=== PATIENT | female | born 1975 | race Caucasian/White ===

== ENCOUNTER → 2020-05-07 06:48 | Outpatient (CLI) | payer OTHER, SELFPAY ==
[2020-05-07 18:32] LABS: SARS-CoV-2 RNA PCR Negative
== END ==
PROVIDERS: PCP Physician Assistant; Visit Provider Physician Assistant
DX: R68.89 Other general symptoms and signs (principal); Z20.822 Contact with and (suspected) exposure to COVID-19
CPT/HCPCS: C9803; U0003; U0005

== ENCOUNTER 2021-10-11 10:09 | Outpatient (CLI) | payer OTHER, SELFPAY ==
--- NOTE | ~2021-10-11 | MM_ITS ---
EXAMINATION: MM screening sheng BI w michelle HISTORY: Screening TECHNIQUE: Craniocaudal and mediolateral oblique 3-D tomosynthesis images were obtained and synthetic 2-D images were generated. CAD analysis was submitted and interpreted. COMPARISON: Comparison to multiple prior studies sequentially, with oldest reviewed study dated 03/2013. BREAST PARENCHYMAL COMPOSITION: The breasts are heterogeneously dense, which may obscure small masses . FINDINGS: There is no evidence of suspicious mass, calcification, or architectural distortion to sugg est malignancy in either breast. There has been no suspicious interval change. IMPRESSION: 1. No mammographic evidence of malignancy. 2. Recommend routine screening mammography in one year. BI-RADS Category 1: Negative Reviewed, dictated and finalized at location A.
== END 2021-10-11 10:10 | disposition home or self-care (01) ==
PROVIDERS: PCP Physician Assistant; Visit Provider Physician Assistant
DX: Z12.31 Encounter for screening mammogram for malignant neoplasm of breast (principal)
CPT/HCPCS: 77063; 77067

== ENCOUNTER 2024-06-22 13:46 | Outpatient (CLI) | payer OTHER, SELFPAY ==
--- NOTE | ~2024-06-22 | MM_ITS ---
EXAMINATION: MM screening sehng BI w michelle HISTORY: Screening TECHNIQUE: Craniocaudal and mediolateral oblique 3-D tomosynthesis images were obtained and synthetic 2-D images were generated. CAD analysis was submitted and interpreted. COMPARISON: Comparison to multiple prior studies sequentially, with oldest reviewed study dated 06/07. BREAST PARENCHYMAL COMPOSITION: Dense: The breasts are heterogeneously dense, which may obscure small masses FINDINGS: There is no evidence of suspicious mass, calcification, or architectural distortion to sugg est malignancy in either breast. There has been no suspicious interval change. IMPRESSION: 1. No mammographic evidence of malignancy. 2. Recommend routine screening mammography in one year. BI-RADS Category 1: Negative Reviewed, dictated and finalized at location A.
--- OUTSIDE RECORDS SUMMARY | 2024-06-22 14:35 | XMS_ITS | Clinical Summary ---
Author Organization [place] [id number] [facility] Address [address] [place] [id number] Phone Care Team Providers Care Rehabilitation Services Coordinator Name Role Phone Kathy Dwyer Primary Care Pr ovider Heron Levine MD Unavailable [phone] Allergies No known active allergies Medications levothyroxine sodium (TIROSINT) 88 mcg capsule Take 1 capsule (88 mcg total) by mouth daily Active FLUoxetine (PROzac) 20 mg tablet Take 1 tablet (20 mg total) by mouth daily Active diclofenac sodium 20 mg/gram /actuation(2 %) solution in metered-dose pump Apply 2 gms to affected joints of the hands and feet bid prn 112 g 2 06/16/19 19 Active Additional Information Patient not taking.Reported on 03/21/2023 omeprazole (PriLOSEC) 40 mg capsule Take 1 capsule (40 mg total) by mouth daily 30 capsule 09/17/19 22 Active ondansetron ODT (ZOFRAN-ODT) 4 mg disintegrating tablet Take 1 tablet (4 mg total) by mouth every 8 (eight) hours as needed for nausea or vomiting 20 tablet 03/21/19 24 Active meloxicam (MOBIC) 15 mg tablet TAKE 1 TABLET BY MOUTH DAILY 90 tablet 08/16/19 24 Active Active Problems Problem Noted Date Diagnosed Date Myalgia 03/10/2022 Assessment & Plan (02/24/2023 12:21 PM WELCOME CENTER ATTENDANT): Describes episodic diffuse general arthralgias/myalgias and fatigue suspicious for the possibility of fibromyalgia, which was discussed today. Has no tender points on exam. Consider duloxetine or gabapentin in the future, symptoms become more frequent and/or bothersome. Assessment & Plan (03/10/2022 2:28 PM WELCOME CENTER ATTENDANT): Has occasional episodes in which she experiences diffuse generalized myalgias/arthralgias and significant fatigue. No tender points on exam. Will check thyroid studies and muscle enzymes. Lateral epicondylitis of both elbows 04/04/2020 Assessment & Plan (04/04/2020 12:08 PM WELCOME CENTER ATTENDANT): Symptoms mild, intermittent and managed fairly well with meloxicam. Discussed epicondyle band if symptoms worsen. Hypothyroidism 12/29/2018 Assessment & Plan (12/29/2018 12:39 PM WELCOME CENTER ATTENDANT): Hx of hypothyroidism on levo. Patient notes unexplained weight gain. Will check tsh/free t4 today Encounter for long-term (current) use of medicat ions 10/26/2018 Assessment & Plan (03/10/2022 2:27 PM WELCOME CENTER ATTENDANT): Routine labs today. Assessment & Plan (08/21/2021 11:01 AM CDT): Routine labs today. Assessment & Plan (01/09/2021 12:49 PM WELCOME CENTER ATTENDANT): Routine labs today. Assessment & Plan (04/04/2020 12:09 PM WELCOME CENTER ATTENDANT): Routine labs today. Assessment & Plan (07/07/2019 10:29 AM CDT): Routine labs today. Repeat L hand US prior to next visit. Assessment & Plan (03/31/2019 11:29 AM WELCOME CENTER ATTENDANT): Routine labs today, including repeat avise. Assessment & Plan (12/29/2018 12:39 PM WELCOME CENTER ATTENDANT): Routine labs today. Chronic SI joint pain 06/15/2018 Assessment & Plan (07/07/2019 10:29 AM CDT): Pelvis MRI 10/12/2018 did not display any significant findings Symptoms resolved with mobic 7.5 daily. No complaints today. Assessment & Plan (03/31/2019 11:28 AM WELCOME CENTER ATTENDANT): Pelvis MRI 10/12/2018 did not display any significant findings Symptoms resolved with mobic 7.5 daily. Assessment & Plan (12/29/2018 12:38 PM WELCOME CENTER ATTENDANT): Pelvis MRI 10/12/2018 did not display any significant findings Symptoms resolved with mobic 7.5 daily. Assessment & Plan (11/24/2018 2:09 PM CDT): Pelvis MRI 10/12/2018 did not display any significant findings Will see if this improves with mobic. Assessment & Plan (10/26/2018 3:00 PM CDT): Pelvis MRI 10/12/2018 did not display any significant findings Assessment & Plan (06/15/2018 12:49 PM CDT): Had bone scan per pcp given the sclerotic findings seen on the SI xray, which came back unremarkable, per patient report. Continues to have SI joint pains, which are worst when flared. Does note AM stiffness. Will check HLA b27 and recheck SI and lumbar xr. History of pancreatitis 01/18/2018 Polyarthralgia 01/18/2018 Overview (10/23/2020): Initial serologies: Pos shira 1:160 homogenous, pos thyroid ab, pos ps/pt on avise; 14.3.3 eta protein: 0.4; negative hla b27 Avise 04/01/2019: Low positive SHIRA by Precious only, positive TPO 67 Repeat Avise 10/22/2020: Positive SHIRA 1:160 dense fine speckled, positive TPO, positive PS PT US 01/27/2018: 1) Mild 2nd MCP and 3rd PIP synovial thickening on examination which will have to be correlated clinically. 2) 4th compartment effusion present. MRI pelvis 10/12/2018: No significant findings Repeat left hand/wrist ultrasound 10/28/2018: Very mild 2nd PIP synovial thickening. Fourth compartment effusion. Hx of intermittent joint pains, involving the hands (pip and dip joints), bilateral feet (1st digit), medial aspect of the knee, SI joints, as well as the upper neck. Denies any of these symptoms present today. Intermittent flares occur every several months and can last ~2 weeks per episode. Mild AM pain and stiffness, which does improve with use. Denies other symptoms for CTD. Strong fh for RA, FM, sarcoidosis, crohn's. No obvious synovitis or tenderness on exam. Given her strong family history, is concerning for possible development of an inflammatory arthritis, in particular spondyloarthritis and/or RA. Will further evaluate with appropriate serologies, radiographs, and US findings. As patient's complaints are minimal at this time, if there are no major findings, will likely just monitor patient closely Suspicious for possible early psa given response to nsaids and father with pso Has not been on other dmards or biologics Assessment & Plan (02/24/2023 12:20 PM WELCOME CENTER ATTENDANT): Tash was last seen 02/2022. At that visit, we did discuss a repeat left hand/wrist ultrasound to assess for inflammation given her family history and increased joint arthralgias discussed. She did not proceed with the hand ultrasound due to cost concerns and her symptoms did significantly improve. Overall, joints are doing very well at this time. Describes a.m. stiffness in the hands for 20-30 minutes without significant discomfort and or obvious swelling. Overall, does appear well managed. Will continue meloxicam 15 mg daily. Routine labs today. Follow-up 4-6 months. Sooner if needed. Assessment & Plan (03/10/2022 2:27 PM WELCOME CENTER ATTENDANT): Tash was last seen 07/2021. She did hold meloxicam for 3-4 weeks and took omeprazole due to GERD symptoms with resolution of symptoms. Has resumed meloxicam for several months without recurrence of GERD. Overall, joints have been well managed. Does experience prolonged a.m. stiffness for 30-40 minutes in the hands/wrists and feet with minimal pain complaints. Has no obvious swelling on exam. At this time, still do not see any obvious evidence suggest underlying inflammatory arthritis. Continue to monitor closely given her family history. Will recheck with a repeat left hand/wrist ultrasound. Otherwise, she does note occasional episodes of diffuse generalized myalgias/arthralgias and significant fatigue. Routine labs today, including checking muscle enzymes and thyroid studies. Continue meloxicam 15 mg daily. Routine labs today. Follow-up 6 months. Sooner if needed. Assessment & Plan (08/21/2021 11:01 AM CDT): Last seen in 12/2020, as was lost to follow-up. Has remained on meloxicam 15 mg daily and continues to manage very well. Denies significant peripheral joint pain and or prolonged a.m. stiffness. No obvious active synovitis on exam today. At this time, he is doing very well at this time without obvious evidence to suggest an active inflammatory arthritis. Will continue to monitor closely for possible early inflammatory arthritis given family history, previous symptoms, as well as previous mild elevation of 14.3.3 ETA protein. Will maintain on meloxicam 15 mg daily. Routine labs today. Follow-up 6 months. Sooner if needed. Assessment & Plan (01/09/2021 12:52 PM WELCOME CENTER ATTENDANT): Tash has remained on meloxicam 15 mg daily, which does manage some of her chronic joint complaints. With that said, she does continue to have some mild stiffness/discomfort in the hands/wrists and feet with episodic flares with associated joint swelling/pain/redness during these episodes. A.m. stiffness for 30 minutes. There is still no appreciable synovitis on exam today. Most recent repeat Avise 09/2020 revealed a persistent positive SHIRA 1:160 in a dense fine speckled pattern, positive TPO antibody, positive PS PT without any other significant autoantibodies. At this time, we are still in seen enough evidence to suggest an active inflammatory arthritis. There is still concern for a developing inflammatory arthritis given her family history and joint symptoms. At the past several visits we have discussed obtaining a repeat left hand/wrist ultrasound to evaluate symptoms when she experiences a flare. She is to call and notify us when flared and will schedule at that time. Otherwise, will maintain on meloxicam 15 mg daily. Routine labs today, including 14.3.3 ETA protein. Follow-up 3 months. Sooner if needed. Seen with Dr. Delgadillo. Assessment & Plan (10/17/2020 10:30 AM CDT): Tash was last seen via telehealth on 06/2020. At that time, she was experiencing episodic flares of increased joint pain, stiffness in the bilateral hands/wrists, elbows, feet. We did increase meloxicam for that reason and discussed scheduling a left hand/wrist ultrasound at that time that she was flared. Since increasing meloxicam, she has noted significant improvement in joint complaints. Has not scheduled the left hand/wrist ultrasound. She does continue to experience some occasional episodes of discomfort/a.m. Stiffness in the bilateral hands/wrists with episodic swelling in the left wrist/left hand. Overall, is doing very well today without significant joint complaints. Symptoms have remained suspicious for possible early onset inflammatory arthritis and/or palindromic rheumatism does remain on the differential. She has very mild swelling in the left wrist without any other obvious swelling. Doing well at this time on meloxicam monotherapy. Will continue meloxicam 15 mg daily. Routine labs today, including recheck Avise. Advised to contact the office for repeat left hand/wrist ultrasound if symptoms exacerbate to reassess for inflammation. Follow-up 3 months. Sooner if needed. Assessment & Plan (07/04/2020 11:43 AM CDT): Tele health visit. Over the past 3-4 weeks, she has experienced increased joint pain, stiffness, which is most notable in the bilateral hands/wrists, elbows, feet, lower back. A.m. stiffness ranging from 30 minutes to 2+ hours. She does describe a few red itchy patches on the hairline of her neck, which has not been evaluated by PCP and/or Dermatology. Symptoms continue to remain suspicious for an early inflammatory arthritis. Would like to increase meloxicam to 15 mg daily. She is to notify us with any GERD symptoms. Will obtain repeat labs, including repeat Avise panel. Obtain repeat left hand/wrist ultrasound to assess for inflammation. Will examine rash on the hairline at the time of her ultrasound appointment to ensure no evidence of pso. Follow-up 4 weeks. Sooner if needed. Assessment & Plan (04/04/2020 12:10 PM WEL[facility] ATTENDANT): Patient seen 06/2019, as was lost to follow-up. She continues to note significant improvement since beginning meloxicam medication. Does note occasional mild stiffness in the hands for 60 minutes with intermittent pain/stiffness in the feet/ankles, as well as some intermittent discomfort over the lateral epicondyles of the bilateral elbows. Notes these symptoms are mild and managed very well with meloxicam. She did not proceed with repeat left hand/wrist ultrasound discussed at last visit, as she felt that she is doing well enough on current treatment regimen. No obvious synovitis on exam today. Will continue meloxicam 7.5 mg daily. If symptoms worsen, can reconsider hand ultrasound to assess for inflammatory arthritis. There is still concern possible early onset psoriatic arthritis given her response to NSAIDs and father with psoriasis history. Patient obtained routine labs yesterday and still awaiting results. Follow-up 3 months. Sooner if needed. Assessment & Plan (07/07/2019 10:28 AM CDT): Telehealth visit. Patient continues to note significant improvement in symptoms since beginning the meloxicam medication. Does continue notes some mild discomfort in the bilateral hands/wrists. Describes primarily stiffness in the morning for 1-2 hours in the hands with a mild soreness. Symptoms do remain highly concerning for possible early onset inflammatory arthritis, which would favor psoriatic arthritis given her response to NSAIDs and father with psoriasis history. Overall, she notes be doing very well at this time with minimal complaints. Will continue meloxicam 7.5 mg daily. Routine labs today. Will schedule for repeat left hand/wrist ultrasound prior to next visit. Follow-up 3 months. Sooner if needed. Assessment & Plan (03/31/2019 11:28 AM WEL[facility] CENTER ATTENDANT): Patient continues to note improvement in joint complaints since beginning the meloxicam medication. With that said, since last visit, patient has experienced increased stiffness in the hands (MCP/PIP joints), but denies much pain. Denies any pain or stiffness in the feet, which had been problematic in the past. No obvious synovitis on exam. Symptoms do still remains suspicious for possible early onset inflammatory arthritis. Will continue to monitor for this. Will obtain repeat serologies, including repeat Avise panel. Consider possible repeat hand ultrasound at next visit. At this time, will continue meloxicam 7.5 mg q.d.. Routine labs today. Follow-up 3 months. Sooner if needed. Assessment & Plan (12/29/2018 12:38 PM WEL[facility] CENTER ATTENDANT): Patient has noted significant improvement in joint symptoms since beginning the meloxicam medication. Notes very occasional mild stiffness in the hands, but otherwise denies any pain and or stiffness in the remaining joints. Joint pain 0/10. No obvious peripheral synovitis on exam. Overall, does appear very well controlled at this time. Will continue meloxicam 7.5 mg q.d.. Routine labs today. Follow-up 3 months. Sooner if needed. Assessment & Plan (11/24/2018 2:09 PM CDT): Low CDAI 5. Patient has noted slight progression in joint symptoms with mild QD pain, stiffness, swelling in the bilateral hands, feet, SI joints with persistent intermittent joint flares of worsened symptoms in these joints. Daily a.m. Stiffness for 30 minutes to 2 hours. Recent repeat left hand/wrist ultrasound 10/28/2018 displayed very mild 2nd PIP synovial thickening in 4th compartment effusion with no significant other findings. At this point, do not see enough evidence at this time to support a diagnosis, although early onset psoriatic arthritis remains highly suspicious given her family history of father with psoriasis. Will prescribe meloxicam 7.5 mg q.d. To help with her joint symptoms. Discussed side effects of the medication, including but not limited to GI upset, kidney, and ulcers. Routine labs today. Follow-up 4 weeks. Sooner if needed. Seen with Dr. Delgadillo. Assessment & Plan (10/26/2018 3:00 PM CDT): Since last visit, patient has noted several flares with increased joint pain in the hands (DIP>remaining joints), feet, as well as the lower back/SI region. Pain over the plantar fascia. Patient has begun to note daily stiffness in the bilateral hands and feet, which can range for few minutes to several hours. Father was recently diagnosed with plaque psoriasis. Recent MRI pelvis 10/12/2018 did not display any significant findings. Given her symptoms including SI joint stiffness, DIP joint pain, as well as father with recent plaque psoriasis diagnosis, symptoms are more suspicious for early onset psoriatic arthritis. Given that her symptoms are fairly mild at this time, would like to repeat right hand ultrasound to further evaluate symptoms. If no significant findings on ultrasound, would likely continue to monitor patient. Fu 4 weeks. Sooner if needed. Seen with Dr. Delgadillo. Assessment & Plan (06/15/2018 12:48 PM CDT): Patient continues to complain of intermittent joint flares, which occur approximately 1-2 times per month. Did not begin the Plaquenil medication after last visit, as was concerned for side effects and wanted to try dietary changes. Denies any joint complaints when she has not flared. Joint pains, primarily involve the bilateral hands (L wrist>remaining), feet, SI joints when flares occur. No obvious peripheral synovitis at present. Discussed possible beginning on Plaquenil medication versus awaiting for a flare and obtain a hand ultrasound at that time. Patient would like to wait for a flare in obtain ultrasound to check for inflammation at that time. Patient does note benefit with Voltaren gel, which she tried samples in the past. For this reason, will prescribed Pennsaid to be applied to the affected joints of the hands up and feet up to 2 times daily p.r.n. When flared. Discussed SE. Seen with Dr. Delgadillo. Fu 4 weeks. Sooner if needed. Will recheck SI and lumbar xray's along with hla b27 given her SI symptoms. Assessment & Plan (02/08/2018 12:23 PM WELCOME CENTER ATTENDANT): Continues to have intermittent joint flares. Patient did experience one joint flare since last visit, primarily involving the hands and feet, which last 2-3 days and resolved. Also notes significant generalized achiness and fatigue during the flares. Did improve some with OTC aleve and ibuprofen. Recent US only displayed mild synovial thickening across a few joints, although US was not performed during the joint flare. Serologies displayed 14.3.3 eta protein 0.4, as well as pos shira 1:160, but otherwise no significant findings. 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 For this reason, will begin treatment with HCQ 200 mg QD to help prevent progression. Risks of retinal toxicity were discussed with the patient. They are aware that they should get at least yearly eye exams, unless otherwise specified. Patient is considering taking the medication, although would like to think about it. Fu 4 weeks. Sooner if needed. Seen with Dr. Delgadillo. Assessment & Plan (01/18/2018 12:12 PM WEL[facility] CENTER ATTENDANT): Hx of intermittent joint pains, involving the hands (pip and dip joints), bilateral feet (1st digit), medial aspect of the knee, SI joints, as well as the upper neck. Denies any of these symptoms present today. Intermittent flares occur every several months and can last ~2 weeks per episode. Mild AM pain and stiffness, which does improve with use. Denies other symptoms for CTD. Strong fh for RA, FM, sarcoidosis, crohn's. No obvious synovitis or tenderness on exam. Given her strong family history, is concerning for possible development of an inflammatory arthritis, in particular spondyloarthritis and/or RA. Will further evaluate with appropriate serologies, radiographs, and US findings. As patient's complaints are minimal at this time, if there are no major findings, will likely just monitor patient closely. FU 4 weeks. Sooner if needed. Seen with Dr. Delgadillo. Social History Tobacco Use Types Packs/Day Years Used Date Smoking Tobacco: Never Assessed Comments Unknown Sex and Gender Information Value Date Recorded Sex Assigned at Not on file Legal Sex Female 2:31 AM WEL[facility] C[facility] ATTENDANT Gender Identity Not on file Sexual Orientation Not on file Obstetrics History Last Filed Vital Signs Vital Sign Reading Time Taken Comments Blood Pressure 109/73 03/21/2023 5:36 PM W[facility] C[facility] ATTENDANT Pulse 89 03/21/2023 5:36 PM WEL[facility] C[facility] ATTENDANT Temperature 37.1 C (98.7 F) 03/21/2023 5:36 PM WEL[facility] C[facility] ATTENDANT Respiratory Rate 18 03/21/2023 5:36 PM WEL[facility] C[facility] ATTENDANT Oxygen Saturation 99% 03/21/2023 5:36 PM WEL[facility] C[facility] ATTENDANT Inhaled Oxygen Concentration - - Weight 54.4 kg (120 lb) 03/21/2023 5:36 PM WELCOM[facility] C[facility] ATTENDANT Height 157.5 cm (5' 2 ) 02/24/2023 10:46 AM WEL[facility] C[facility] ATTENDANT Body Mass Index 21.95 02/24/2023 10:46 AM WEL[facility] C[facility] ATTENDANT Plan of Treatment Health Maintenance Due Date Last Done Comments Breast Cancer Screening-Mammogram 1977 Cervical Cancer Screening 1977 Colon Cancer Screening-Colonoscopy 1977 Depression Screening 1977 DTaP/Tdap/Td Vaccine (1 - Tdap) 1988 Hepatitis B Screening 09/16/1995 Regular Well Visit/Exam 18-64 09/16/1995 Covid-19 Vaccine (3 - 2023-2 5 season) 2023 04/30/2021, 04/09/2021 Influenza Vaccine (Season Ended) 2024 Hepatitis C Screening Completed 01/18/2018 HPV Vaccines Aged Out No longer eligi ble based on patient's age to complete this topic Pneumococcal vaccine <65 Aged Out No longer eligible based on patient's age to complete this topic Procedures Procedure Name Priority Date/Time Associated Diagnosis Comments HEPATITIS C ANTIBODY Routine 01/18/2018 11:22 AM W[facility] ATTENDANT Polyarthralgia Fatigue, unspecified type from Last 3 Months or Most Recently Relevant to Health Maintenance Results * (ABNORMAL) Hepatitis C antibody (01/18/2018 11:22 AM WEL[facility] C[facility] ATTENDANT) Hep C Ab REACTIVE(A) NON-REACTIV E [facility] [place] SIGNAL TO CUT-OFF 7.48(H) <1.00 [facility] [place] Comment: Following CDC recommendations (MMWR No. 62, 2013), this patient's HCV Antibody Reactive sample will be tested for the presence of HCV RNA by a Nucleic Acid Amplification Test (NAAT) to determine if the patient has an active HCV infection. HCV RNA IU/mL <15 NOT DETECTED NOT DETECTED IU/mL [facility] [place] HCV RNA log IU/mL <1.18 NOT DETECTED NOT DETECTED Log IU/mL [facility] [place] Comment: Please note: There are several scenarios that may cause this combination of results. 1)Patient is not currently actively infected with HCV either because the patient has a resolved HCV infection or the patient has a false positive Ab test and was never infected with HCV. 2)A few patients with circulating anti-HCV antibodies that do not have detectable HCV RNA, may not have completely resolved the infection. These infrequently encountered patients could be carriers of the virus and should be managed according to the current Treatment Guidelines (J Hepatol, 5487-9066, ). Please correlate these findings with the patient's clinical history and any other diagnostic findings, including any evidence of liver dysfunction. (Always Message) [facility] [place] Comment: This test was performed using Real-Time Polymerase Chain Reaction. Reportable Range: 15 IU/mL to 100,000,000 IU/mL (1.18 Log IU/mL to 8.00 Log IU/mL). The analytical performance characteristics of this assay have been determined by [facility]. The modifications have not been cleared or approved by the FDA. This assay has been validated pursuant to the CLIA regulations and is used for clinical purposes. For more information on this test, go to: http://education.[employer]/faq/JCM23m9 (This link is being provided for informational/ educational purposes only.) Blood specimen (specimen) 01/18/2018 11:22 AM [facility] C[facility] ATTENDANT 01/18/2018 11:23 AM WEL[facility] C[facility] ATTENDANT Narrative Resulting Agency Comment Performing Organization Information: Site ID: [id number] Name: [facility] Address: [address] [place] [address] [place] [address] Director: Wilbur Lr D.O., MPH Storm [facility]CROBIOLOG[facility] - GENE RAL ORDERABLES Final Result [facility] [place] from Last 3 Months or Most Recently Relevant to Health Maintenance Insurance [facility] Address: [facility] [address] [place] [address] [facility] [employer] [facility] Address: [place] [address] Care Teams Rehabilitation Services Coordinator Relationship Specialty Start Date End Date Kathy Dwyer PA PCP - General Physician Medical Aides Teacher 12/21/17 Heron Levine MD [address] [place] [id number] Consulting Physician Rheumatology 02/25/23
--- OUTSIDE RECORDS SUMMARY | 2024-06-22 14:35 | XMS_ITS | Clinical Summary ---
Author Organization [facility] Address [address] [place] [phone] Care Team Providers Care Teenage Program Director Name Role Phone Unavailable Primary Care Provider Unavailabl e Social History Tobacco Use Types Packs/Day Years Used Date Smoking Tobacco: Never Assessed Comments Unknown Sex and Gender Information Value Date Recorded Sex Assigned at Not on file Legal Sex Female 12:35 AM CDT Gender Identity Not on file Sexual Orientation Not on file Plan of Treatment Health Maintenance Due Date Last Done Comments Hepatitis C Virus (HCV) Screening 1977 TdaP Immunization 1977 Hepatitis B Immunization (1 of 3 - 19+ 3-dose series) 1996 Pap Smear 1998 Cervical Cancer Screening (CCS) 09/16/2007 HPV/Cotest 09/16/2007 Discussion re Starting/Frequ ency of Mammograms 2017 Colonoscopy 2022 Colorectal Cancer Screening 2022 Influenza Immunization (#1) 2023 SARS-COV-2 Immunization ( season) 2023 Respiratory Syncytial Virus (RSV) Immunization (Adult) (1 - 1-dose 75+ series) 2052 Meningococcal Immunization (ACWY) Aged Out No longer eligible based on patient's age to complete this topic Pneumococcal Immunization Combined Aged Out No longer eligible based on patient's age to complete this topic Rotavirus Immunization Aged Out No lo nger eligible based on patient's age to complete this topic Insurance [employer] on file
--- OUTSIDE RECORDS SUMMARY | 2024-06-22 14:35 | XMS_ITS | Referral Summary ---
Author Organization [place] [id number] Address [address] [place] [phone] Phone Care Team Providers Care Supervisor Sewer Maintenance Name Role Phone Kathy Dwyer Primary Care Pr ovider Heron Levine MD Unavailable [phone] Allergies No known active allergies Medications levothyroxine [...] 03/10/2022 Assessment & Plan (02/24/2023 12:21 PM GENERAL CLERK): Describes episodic diffuse general arthralgias/myalgias and fatigue suspicious for the possibility of fibromyalgia, which was discussed today. Has no tender points on exam. Consider duloxetine or gabapentin in the future, symptoms become more frequent and/or bothersome. Assessment & Plan (03/10/2022 2:28 PM GENERAL CLERK): Has occasional episodes in which she experiences diffuse generalized myalgias/arthralgias and significant fatigue. No tender points on exam. Will check thyroid studies and muscle enzymes. Lateral epicondylitis of both elbows 04/04/2020 Assessment & Plan (04/04/2020 12:08 PM GENERAL CLERK): Symptoms mild, intermittent and managed fairly well with meloxicam. Discussed epicondyle band if symptoms worsen. Hypothyroidism 12/29/2018 Assessment & Plan (12/29/2018 12:39 PM GENERAL CLERK): Hx of hypothyroidism on levo. Patient notes unexplained weight gain. Will check tsh/free t4 today Encounter for long-term (current) use of medicat ions 10/26/2018 Assessment & Plan (03/10/2022 2:27 PM GENERAL CLERK): Routine labs today. Assessment & Plan (08/21/2021 11:01 AM CDT): Routine labs today. Assessment & Plan (01/09/2021 12:49 PM GENERAL CLERK): Routine labs today. Assessment & Plan (04/04/2020 12:09 PM GENERAL CLERK): Routine labs today. Assessment & Plan (07/07/2019 10:29 AM CDT): Routine labs today. Repeat L hand US prior to next visit. Assessment & Plan (03/31/2019 11:29 AM GENERAL CLERK): Routine labs today, including repeat avise. Assessment & Plan (12/29/2018 12:39 PM GENERAL CLERK): Routine labs today. Chronic SI joint pain 06/15/2018 Assessment & Plan (07/07/2019 10:29 AM CDT): Pelvis MRI 10/12/2018 did not display any significant findings Symptoms resolved with mobic 7.5 daily. No complaints today. Assessment & Plan (03/31/2019 11:28 AM GENERAL CLERK): Pelvis MRI 10/12/2018 did not display any significant findings Symptoms resolved with mobic 7.5 daily. Assessment & Plan (12/29/2018 12:38 PM GENERAL CLERK): Pelvis MRI 10/12/2018 did not display any [...] biologics Assessment & Plan (02/24/2023 12:20 PM GENERAL CLERK): Tash was last seen 02/2022. At that [...] needed. Assessment & Plan (03/10/2022 2:27 PM GENERAL CLERK): Tash was last seen 07/2021. She did [...] needed. Assessment & Plan (01/09/2021 12:52 PM GENERAL CLERK): Tash has remained on meloxicam 15 mg [...] needed. Assessment & Plan (04/04/2020 12:10 PM GENERAL CLERK): Patient seen 06/2019, as was lost to [...] needed. Assessment & Plan (03/31/2019 11:28 AM GENERAL CLERK): Patient continues to note improvement in joint [...] needed. Assessment & Plan (12/29/2018 12:38 PM GENERAL CLERK): Patient has noted significant improvement in joint [...] symptoms. Assessment & Plan (02/08/2018 12:23 PM GENERAL CLERK): Continues to have intermittent joint flares. Patient [...] [place]. Assessment & Plan (01/18/2018 12:12 PM GENERAL CLERK): Hx of intermittent joint pains, involving the [...] on file Legal Sex Female 2:31 AM GENERAL CLERK Gender Identity Not on file Sexual Orientation Not on file Last Filed Vital Signs Vital Sign Reading Time Taken Comments Blood Pressure 109/73 03/21/2023 5:36 PM GENERAL CLERK Pulse 89 03/21/2023 5:36 PM GENERAL CLERK Temperature 37.1 C (98.7 F) 03/21/2023 5:36 PM GENERAL CLERK Respiratory Rate 18 03/21/2023 5:36 PM GENERAL CLERK Oxygen Saturation 99% 03/21/2023 5:36 PM GENERAL CLERK Inhaled Oxygen Concentration - - Weight 54.4 kg (120 lb) 03/21/2023 5:36 PM GENERAL CLERK Height 157.5 cm (5' 2 ) 02/24/2023 10:46 AM GENERAL CLERK Body Mass Index 21.95 02/24/2023 10:46 AM GENERAL CLERK Plan of Treatment Not on file Procedures Procedure Name Priority Date/Time Associated Diagnosis Comments HEPATITIS C ANTIBODY Routine 01/18/2018 11:22 AM GENERAL CLERK Polyarthralgia Fatigue, unspecified type from Last 3 Months or Most Recently Relevant to Health Maintenance Results * (ABNORMAL) Hepatitis C antibody (01/18/2018 11:22 AM GENERAL CLERK) Hep C Ab REACTIVE(A) NON-REACTIV E [facility] [place] SIGNAL TO CUT-OFF 7.48(H) <1.00 [facility] [place] Comment: Following CDC recommendations (MMWR No. 62, 2013), this patient's HCV Antibody Reactive sample will be tested for the presence of HCV RNA by a Nucleic Acid Amplification Test (NAAT) to determine if the patient has an active HCV infection. HCV RNA IU/mL <15 NOT DETECTED NOT DETECTED IU/mL [facility] HCV RNA log IU/mL <1.18 NOT DETECTED NOT DETECTED Log IU/mL [facility] [place] Comment: Please note: There [...] to the current Treatment Guidelines (J Hepatol, 9918-5647, ). Please correlate these findings with the patient's clinical history and any other diagnostic findings, including any evidence of liver dysfunction. (Always Message) [facility] [place] Comment: This test was performed using Real-Time Polymerase Chain Reaction. Reportable Range: 15 IU/mL to 100,000,000 IU/mL (1.18 Log IU/mL to 8.00 Log IU/mL). The analytical performance characteristics of this assay have been determined by [facility]. The modifications have not been cleared or approved by the FDA. This assay has been validated pursuant to the CLIA regulations and is used for clinical purposes. For more information on this test, go to: http://education.MagForce.CollegeSolved/faq/UMD35k1 (This link is being provided for informational/ educational purposes only.) Blood specimen (specimen) 01/18/2018 11:22 AM GENERAL CLERK 01/18/2018 11:23 AM GENERAL CLERK Narrative Resulting Agency Comment Performing Organization Information: Site ID: [id number] Name: [facility] Address: [address] [place] [id number] Director: Wilbur Lr D.O., MPH [facility]CRO[facility] - GENE RAL ORDERABLES Final Result Performing Organization Address City/State/[facility] Co de Phone Number [facility] [place] from Last 3 Months or Most Recently Relevant to Health Maintenance Insurance Care Teams Supervisor Sewer Maintenance Relationship Specialty Start Date End Date Kathy Dwyer PA PCP - General Physician Project Manager/Team Coach 12/21/17 Heron Levine MD [address] [place] [address] Consulting Physician Rheumatology 02/25/23
--- OUTSIDE RECORDS SUMMARY | 2024-06-22 14:35 | XMS_ITS | Data Portability ---
Author Organization [facility] Address [address] [place] [address] Care Team Providers Care Director [employer] Name Role Phone DENVER GARCIA Primary Care Provider Unavailab le Assessment Encounter Date Assessment Date Assessment LastModified by Organization Details LastModified Time 06/01/2023 06/01/2023 Pt has cologuard in her position to complete from gyne. Mammogram is due , she has order. eye and dental exams UTD Not available 06/20/2023 15:12:04 06/12/2024 06/12/2024 Mammogram UTD cologuard last year UTD with gyne eye exam UTD dental exam UTD labs UTD Labs from other provider location. Mild LDL elevation at 129. Vitamin-D is slightly low, fasting sugar kidney and liver function is normal, thyroid levels are stable, negative on thyroglobulin antibodies, CBC counts are normal, iron studies are stable Not available 06/12/2024 23:26:27 Plan of Treatment Reminders Order Date Submit Date Provider Last Modified By Organization Details Last Modified Time Details Appointments ANNUAL 30 2025 09:00A M YEIMI Sue Not available Not available Not available Lab estradiol , serum 2023 024 [email or web address] [facility], [address] [facility], [place], [address], 10/22/2023 14:20:29 lh + FSH, serum 2023 024 [email or web address] [facility], [address] [facility] [address], [place], [address], 10/22/2023 14:20:24 progester one, serum 2023 024 [email or web address] [facility], [address] [facility], [facility], [place], [address], 10/22/2023 14:20:19 dhea-sulf ate, serum 2023 024 [email or web address] [facility], [address] [facility], [facility], [place], [address], 10/22/2023 14:20:15 testoster one, free + total, serum 2023 024 [email or web address] [facility], [address] [facility], [facility], [place], [address], 10/22/2023 14:20:10 lipid panel, serum 2023 024 [email or web address] [facility], [address] [facility], [facility], [place], [address], 10/22/2023 14:19:46 CBC w/ auto diff 2023 024 [email or web address] [facility], [address] [facility], [facility], [place], [address], 10/22/2023 14:20:06 CMP, serum or plasma 2023 024 [email or web address] [facility], [address] [facility], [facility], [place], [address], 10/22/2023 14:20:01 vitamin B12 + folate, serum or blood 2023 024 [email or web address] [facility], [address] [facility], [facility], [place], [address], 10/22/2023 14:19:56 HbA1c (hemoglob in A1c), blood 2023 024 [email or web address] [facility], [address] [facility], [facility], [place], [address], 10/22/2023 14:19:50 TSH + free T4, serum 2023 024 [email or web address] [facility], [address] [facility], [place], [address], 10/22/2023 14:20:34 T3, free, serum or plasma 2023 024 [email or web address] [facility], [address] [facility] [address], [place], [address], 10/22/2023 14:20:39 thyroid peroxidas e (tpo) Ab, serum 2023 024 [email or web address] [facility], [address] [facility] [address], [place], [address], 10/22/2023 14:19:42 Referral None recorded. Procedures None recorded. Surgeries None recorded. Imaging None recorded. Medication Orders None recorded. Patient TargetsNo targets recorded. Patient InstructionsNo instructions recorded. Reason for Referral None Reported. Results Created Date Observation Date Name Description Value Unit Range Abnormal Flag Note LastModifiedBy Organization Detail LastModifiedTime Result Notes None recorded. Problems Name Problem SNOMED Code Status Onset Date Resolution Date Notes Provider Name and Address Organization Details Recorded Time Body mass index 20-24 - normal 241530675 Active 2024 Alison Hurd MA null, [place] - [facility] 5 10:51:36 Hyperlipidemia 02855744 Active 2024 YEIMI Sue Attn: Diego ceja,[address] [place], [address], [facility] - [facility] 5 10:57:33 Vitamin D deficiency 76797443 Active 2024 YEIMI Sue Attn: Diego ceja,[address] [place], [address], [facility] - [facility] 5 10:57:33 Premenstrual dysphoric disorder 404083 Active 2024 YEIMI Sue Attn: Diego ceja,[address] [place], [address], [place] - [facility] 5 10:58:21 Perimenopausal disorder 819621961 Active 2024 YEIMI Sue Attn: Diego ceja,[address] [facility], [place], [address], [place] [facility] 5 10:58:23 Anxiety 87839143 Active 2024 YEIMI Sue Attn: Daxasmith ceja,[address] [facility], [place], [address], [place] [facility] 5 10:58:27 Autoimmune disease 67161110 Active 2024 YEIMI Sue Attn: Diego ceja,[address] [facility], [place], [address], [place] [facility] 5 10:58:28 Acquired hypothyroidism 759990732 Active 2024 YEIMI Sue Attn: Daxasmith ceja,[address] [facility], [place], [address], [place] - [facility] 5 10:58:30 Long-term current use of drug therapy 224755320 Active 2024 YEIMI Sue Attn: Diego ceja,[address] [facility], [place], [address], [place] - [facility] 5 10:58:44 Problem Notes None recorded. Procedures Surgical History Date Name Laterality Status Provider Name and Address Organization Details Recorded Time Cholecystectomy completed Alison Hurd [place] - [facility] 06/01/2023 13:04:56 Tonsillectomy completed Alison Hurd [place] [facility] 06/01/2023 13:05:06 section completed Alison Hurd [place] [facility] 06/01/2023 13:05:11 Imaging Results None recorded. Procedure Notes None recorded. Medical Equipment None Reported. Allergies No known drug allergies Medications Name Sig Start Date Stop Date Status Note LastModified by Organization Details LastModified Time fluoxetin e 40 mg capsule TAKE 1 CAPSULE BY MOUTH EVERY DAY 2024 active Not Available Not Available Not Avai lable meloxicam 15 mg tablet Take 1 tablet every day by oral route. 06/12 completed pt refused states that she has been f.u with a doctor Not Available Not Available Not Available liothyron ine 5 mcg tablet TAKE 2 TABLETS BY MOUTH IN THE MORNING AND 1 TABLET 6 HOURS LATER DIRECTED active Not Available Not Available No t Available Synthroid 88 mcg tablet Take 1 tablet every day by oral route for 30 days. active Not Available Not Available No t Available magnesium active otc Not Available Not Luba ilable Not Available meloxicam 05/31 completed Not Available Not Available Not Available fluoxetin e 04/21 completed Not Available Not Available Not Available Vitamin D active Not Available Not Luba ilable Not Available Desiccate d Beef Liver W/B-12 active otc Not Available Not Available Not Available Naltrex 1.5 mg capsule Take by oral route. active Not Available Not Available No t Available Vitals Date Recorded Body height Body mass index (BMI) Body weight Respiratory rate Oxygen saturation Oxygen saturation in Arterial blood by Pulse oximetry Heart rate Systolic blood pressure Diastolic blood pressure Provider Name and Address Organization Details Last Updated DateTime 4 160.02 cm 22 kg/m2 68344.4 5 g 18 /min 99 % 99 % 97 /min 120 mm[Hg] 72 mm[Hg] Alison Hurd MA [facility] 4 11:20:44 Date Recorded Systolic blood pressure Diastolic blood pressure Provider Name and Address Organization Details Last Updated DateTime 06/01/2023 118 mm[Hg] 80 mm[Hg] YEIMI Sue Attn: Accounting,[address] [place], [address], [facility] 06/01/2023 11:45:48 Date Recorded Body height Body mass index (BMI) Body weight Respiratory rate Oxygen saturation Oxygen saturation in Arterial blood by Pulse oximetry Heart rate Systolic blood pressure Diastolic blood pressure Provider Name and Address Organization Details Last Updated DateTime 5 160.02 cm 20.4 kg/m2 20169.1 2 g 18 /min 99 % 99 % 62 /min 124 mm[Hg] 82 mm[Hg] Alison Hurd MA [facility] 10:54:17 Date Recorded Systolic blood pressure Diastolic blood pressure Provider Name and Address Organization Details Last Updated DateTime 06/12/2024 120 mm[Hg] 80 mm[Hg] YEIMI Sue Attn: Accounting,[address] [facility], [place], [address], [facility] 06/12/2024 23:24:32 Social History Question Answer Notes LastModified by Organizat ion Details LastModified Time Tobacco Smoking Status Never Smoker Alison Hurd MA [facility], [facility] 06/01/2023 11:18:21 Do You Have An Advance Directive? Yes Will Information not available 06/12/2024 What Is Your Level Of Alcohol Consumption? Occasional Socailly Information not available 06/01/2023 Are You Blind Or Do You Have Difficulty Seeing? No Information not available 06/01/2023 What Is Your Level Of Caffeine Consumption? Moderate Everyday 2x Information not available 06/01/2023 In The 14 Days Before Symptom Onset, Have You Had Close Contact With A Laboratory-confi rmed COVID-19 While That Case Was Ill? No Information not available 06/01/2023 In The 14 Days Before Symptom Onset, Have You Had Close Contact With A Person Who Is Under Investigation For COVID-19 While That Person Was Ill? No Information not available 06/01/2023 Have You Been To An Area Known To Be High Risk For COVID-19? No Information not available 06/01/2023 Are You Deaf Or Do You Have Serious Difficulty Hearing? No Information not available 06/01/2023 What Type Of Diet Are You Following? REGULAR Information not available 06/01/2023 Are There Any Guns Present In Your Home? No Information not available 06/01/2023 What Was The Date Of Your Most Recent Tobacco Screening? 06/12/2024 Information not available 06/12/2024 Do You Use Your Seat Belt Or Car Seat Routinely? Yes Information not available 06/01/2023 Do You Have Smoke And Carbon Monoxide Detectors In Your Home? Yes Information not available 06/01/2023 Do You Feel Stressed (tense, Restless, Nervous, Or Anxious, Or Unable To Sleep At Night)? [id number] Information not available 06/01/2023 Do You Use Any Illicit Or Recreational Drugs? No Information not available 06/01/2023 Do You Use Sunscreen Routinely? Yes Information not available 06/01/2023 Has Tobacco Cessation Counseling Been Provided? No Information not available 06/01/2023 Do You Or Have You Ever Used Any Other Forms Of Tobacco Or Nicotine? No Information not available 06/01/2023 Sex: Female Functional Status Question Answer Note LastModified by Organizat ion Details LastModified Time Are you able to care for yourself? Yes Information not available 06/01/2023 What is your exercise level? Occasional Information not available 06/01/2023 Mental Status None recorded. Family History Relationship Description Onset Age of this Age Resolved Age Notes LastModified by Organization Details LastModified Time Mother Asthma [email or web address] Not available 06/01/2023 13:05:23 Mother Depressive disorder [email or web address] Not available 2023 13:05:35 Father Depressive disorder [email or web address] Not available 2023 13:05:35 Brother Depressive disorder [email or web address] Not available 2023 13:05:35 Medical History Condition Response Coronary Artery Disease N Other N High Blood Pressure N Atrial Fibrillation N Kidney or Bladder Problems N Thyroid Problems Y GI Problems N Depression Y COPD N Blood Clots N Skin Problems N Anemia N Heart Attack (OK) N Anxiety Disorder N Diabetes N Muscle, Joint, or Bone Problems N Seizures/Epilepsy N Acid Reflux (GERD) N Cancer N Stroke N Asthma N Allergies N High Cholesterol N Hepatitis N Liver Disease N Headaches N Heart Failure N Osteoporosis N Gynecological History Statement/Question Response Frequency of Cycle (Q days) 28 Date of LMP 05/16/2024 Menses Monthly Y Duration of Flow (days) 6 Current Control Method None LMP Definite Obstetrics History GPAL:G 4 P 3 0 1 3 Type Value Full Term 3 Induced 0 Spontaneous 1 Premature 0 Living 3 Total 4 Immunizations Vaccine Type Date Status Note Provider Nam e and Address Organization Details Recorded Time COVID-19, mRNA, LNP-S, PF, 30 mcg/0.3 mL dose, julianne-sucrose 04/09/2021 completed BOBBY Burt, [place] - [facility] 06/09/2024 09:01:58 COVID-19, mRNA, LNP-S, PF, 30 mcg/0.3 mL dose, julianne-sucrose 04/30/2021 completed Alison Hurd MA [place], [place] - [facility] 06/09/2024 09:01:58 Past Encounters Encounter ID Performer Location Encounter Start Date Encounter Closed Date Diagnosis/Indication Diagnosis SNOMED-CT Code Diagnosis ICD10 Code Diagnosis Note [id number] Storm Orta MD [facility] [employer] [address] [place] [address] 06/01/2023 11:06:59 06/01/2023 12:15:50 Adult health examination 747354681 Z00.01 wellness completed Premenstru al dysphoric disorder 358668 F32.81 stable on fluoxetine 40mg daily. Anxiety 67942456 F41.9 stable on fluoxetine 40mg daily. Perimenopa usal disorder 740248589 N95.9 pt requests full Hormone panel. Long-term drug therapy 508074972 Z79.899 routine CBC, CMP , B12 and folate labs due Hypothyroidism 83069282 E03.9 Due for updated Thyroid function panel. continue levothyrox ine 88mcg daily. Cholesterol screening 27 5408253 Z13.220 fasting lipid panel due. Diabetes m ellitus screening 130157298 Z13.1 annual a1c screening due Autoimmune disease 40235 009 M35.9 her dad has RA and Sarcoid, she is following w/Rheumato logy for unspecifie d inflammato ry/autoimm une disorder not well identified ; a lot of joint pains. no skin manifestat ions. [id number] Storm Orta MD [facility] [employer] [address] [place] [id number] 06/12/2024 10:42:54 06/12/2024 11:16:18 Body mass index 20-24 - normal 540472545 Z68.20 BMI is 20.4 Adult [facility] examination 585818772 Z00.00 wellness completed Vitamin D deficiency 347 08724 E55.9 Patient is taking vitamin-D supplement over-the-c ounter for history of vitamin-D deficiency labs are up-to-date with her functional medicine provider. Hyperlipidemia 80086659 E78.5 LDL 129, has improved on labs that she had faxed to his former functional medicine provider. Premenstru al dysphoric disorder 498992 F32.81 stable on fluoxetine 40mg daily. Perimenopa usal disorder 579856951 N95.9 As above stable on SSRI therapy Anxiety 97287126 F41.9 stable on fluoxetine 40mg daily. Autoimmune disease 20816 009 M35.9 her dad has RA and Sarcoid, she is following w/Rheumato logy for unspecifie d inflammato ry/autoimm une disorder not well identified ; a lot of joint pains. no skin manifestat ions. Acquired hypothyroidism 953915911 E03.9 Up-to-date on labs from her functional medicine provider who has her on levothyrox ine 88 mcg daily and liothyroni ne 5 mcg 2 tablets daily. Long-term current use of drug therapy 383232026 Z79.899 Health Concerns Section Related Observation LastModified by Organization Detai ls LastModified Time None Recorded Concern Status LastModified by Organization Details LastModified Time None Recorded Advance Directives Directive Y: will Payers Encounter Date Sequence Insurance Name Policy Number Policy Daniels Covered Member ID Daniels Member ID Guarantor Name 06/01/[address] [facility] [id number] Strom Thomas [id number] Tash Thomas 06/12/[address] [facility] [id number] Storm Thomas [id number] Tash Thomas Notes Date Note Type Note Provider Name and Address Organization Details Recorded Time 06/01/2023 text/html Anxiety/Depressi onRepo rted bypatient.Notes:pt is taking fluoxetine 40mg daily which helps for her PMDD and underlying anxiety.Generic HPI TemplateReported bypatient.Notes:Pt has underlying PMDD and is interested in hormone labs completed . she does feel that her SSRI therapy is helping.ThyroidReporte d bypatient.Notes:pt is stable on levothyroxine 88mcg daily. due for updated labs. Underlying autoimmune connective tissue generalized diagnosis. on meloxicam 15mg daily. Seeing rheumatology. YEIMI Sue Attn: Accounting,[address], [place], [address], [place] [facility] 06/20/2023 15:12:20 06/12/2024 text/html Anxiety/Depressi onRepo rted bypatient.Notes:pt is taking fluoxetine 40mg daily which helps for her PMDD and underlying anxiety.Generic HPI TemplateReported bypatient.Notes:Pt has underlying PMDD and is interested in hormone labs completed . she does feel that her SSRI therapy is helping.ThyroidReporte d bypatient.Notes:pt is stable on levothyroxine 88mcg daily. due for updated labs. Underlying autoimmune connective tissue generalized diagnosis. on meloxicam 15mg daily. Seeing rheumatology. YEIMI Sue Attn: Accounting,[address], [place], [address], [place] [facility] 06/12/2024 23:27:39 OBGyn Episode No OBEpisode recorded.
== END 2024-06-22 13:47 | disposition home or self-care (01) ==
PROVIDERS: PCP Physician Assistant; Visit Provider Nurse Practitioner
DX: Z12.31 Encounter for screening mammogram for malignant neoplasm of breast (principal)
CPT/HCPCS: 77063; 77067

== ENCOUNTER 2024-09-26 13:20 | Outpatient (CLI) | payer OTHER, SELFPAY ==
--- NOTE | ~2024-09-26 | XR_ITS ---
EXAMINATION: SACRUM/COCCYX DATE: 09/26/2024 13:33 INDICATION: Recent sacral injury. TECHNIQUE: Three views sacrum/coccyx FINDINGS: Comparison to CT dated 04/18/2009 There is no displaced fracture of the sacrum. The coccyx demonstrates overall normal morphology with out acute angulation.There is disc narrowing at L5-S1 consistent with degenerative spondylosis. Sacra l foramen are symmetric. Incidental note is made of left renal stones. IMPRESSION: 1. No acute displaced osseous abnormality of the sacrum. Suspicion for occult or nondisplaced sacral fracture can either be evaluated with CT or MRI. 2. Grossly normal morphology to the coccyx without acute angulation. However, due to the wide range of normal variation of the coccyx, acute injury would be best evaluated by clinical examination and patient's symptoms. 3: Mild spondylosis at L5-S1. 4: Left nephrolithiasis. Reviewed, dictated and finalized at location A.
== END 2024-09-26 13:21 | disposition home or self-care (01) ==
PROVIDERS: PCP Physician Assistant; Visit Provider Physician Assistant
DX: S39.92XA Unspecified injury of lower back, initial encounter (principal); X58.XXXA Exposure to other specified factors, initial encounter; M47.896 Other spondylosis, lumbar region; N20.0 Calculus of kidney
CPT/HCPCS: 72220